=== PATIENT | male | born 1960 | race Caucasian/White ===

== ENCOUNTER 2021-03-16 03:20 | Emergency (ER) | payer OTHER ==
[2021-03-16 04:01] LABS: BASOPHIL 0.1 % (0-2); EOSINOPHIL 0.2 % (0-5); HCT 48.4 % (42.0-52.0); HGB 16.1 g/dl (13.2-18.0); LYMPHOCYTE 6.5 % (15-48); MCH 30.1 pg (25.0-31.0); MCHC 33.3 g/dL (32.0-36.0); MCV 90.5 fL (78.0-100.0); MONOCYTE 8.3 % (0-12); MPV 9.4 fL (6.0-9.5); NEUTROPHIL 84.5 % (41-80); NRBC 0; PLT 245 K/uL (150-400); RBC 5.35 M/uL (4.70-6.00); RDW 13.1 % (11.5-14.0); WBC 15.6 K/uL (4.0-10.5)
[2021-03-16 04:17] LABS: ALBUMIN 3.7 g/dL (3.4-5.0); BILIRUBIN - TOTAL 1.6 mg/dL (0.2-1.0); BUN/CREAT RATIO (CALC) 13.7 RATIO; CREATININE 1.46 mg/dL (0.67-1.17); GLOBULIN (CALCULATION) 4.5 g/dL; TOTAL PROTEIN 8.2 g/dL (6.4-8.2)
[2021-03-16] MEDS ORDERED: FLOMAX0.4 MG PO (05:55)
[2021-03-16] MEDS ORDERED: ONDANSETRON ODT4 MG PO (05:55)
[2021-03-16] MEDS ORDERED: PERCOCET 5-3251 EACH PO (05:55)
[2021-03-16 08:01] LABS: BILIRUBIN NEGATIVE (NEGATIVE); BLOOD 3+ Ery/uL (NEGATIVE); CLARITY CLEAR (CLEAR); COLOR YELLOW (YELLOW); GLUCOSE (U) NORMAL (NORMAL); LEUKOCYTES NEGATIVE Leu/uL (NEGATIVE); NITRITE NEGATIVE (NEGATIVE); PROTEIN 1+ mg/dL (NEGATIVE); SPECIFIC GRAVITY >=1.030 (1.001-1.030); UROBILINOGEN 0.2 mg/dL (0.2-1.0); pH 5.5 (5.0-9.0)
[2021-03-16 08:05] LABS: BACTERIA TRACE
[2021-03-16 08:06] LABS: YEAST PRESENT
== END 2021-03-16 09:08 | disposition home or self-care (01) ==
LOC: FER 03:20
PROVIDERS: Internal Medicine
DX: N13.2 Hydronephrosis with renal and ureteral calculous obstruction (principal); N17.9 Acute kidney failure, unspecified; I10 Essential (primary) hypertension; F17.210 Nicotine dependence, cigarettes, uncomplicated; Z79.899 Other long term (current) drug therapy
CPT/HCPCS: 36415; 80053; 81001; 83690; 84484; 85025; 93005; J1170; J2405; J7030